=== PATIENT | male | born 1990 | race African-American/Black ===

== ENCOUNTER 2016-12-17 07:46 | Emergency (ER) | payer MEDICAID ==
[~2016-12-17] VITALS: Ht 170.2 cm; Wt 61.2 kg
[2016-12-17 07:43] VITALS: BP 125/75
[2016-12-17 11:03] VITALS: BP 110/62
--- NOTE | 2016-12-17 12:52 | Emergency Room Report ---
History of Present Illness General Chief Complaint: Medication Refill Source: Patient, Family Member, EMS (PAWEL ANGEL D.O.) Present Illness HPI Patient was brought in by paramedics for auditory hallucinations Questionable thoughts of suicidal ideation Patient here denies any active suicidal thoughts however he does have pressured speech And reports history of schizophrenia and major depression Patient has been off his medications for 3 days otherwise denies any vomiting or diarrhea denies any back or flank pain patient has had previous psychiatric hospitalizations (PAWEL ANGEL D.O.) Allergies: Coded Allergies: No Known Allergies (Unverified , 12/17/16) Patient History Past Medical History: see triage record Pertinent Family History: none Reviewed Nursing Documentation: PMH: Agreed, PSxH: Agreed (PAWEL ANGEL D.O.) Nursing Documentation-PMH Past Medical History: No Stated History (PAWEL ANGEL D.O.) Review of Systems All Other Systems: negative except mentioned in HPI (PAWEL ANGEL D.O.) Physical Exam Vital Signs Date Time Temp Pulse Resp B/P Pulse Ox O2 Delivery O2 Flow Rate FiO2 12/17/16 07:36 60 16 125/75 100 Room Air 12/17/16 07:43 98.1 Sp02 EP Interpretation: reviewed, normal General Appearance: well appearing, no apparent distress Head: normocephalic, atraumatic Eyes: bilateral eye EOMI, bilateral eye PERRL ENT: hearing grossly normal, normal pharynx, TMs + canals normal, uvula midline Neck: full range of motion, supple, no meningismus, no bony tend Respiratory: lungs clear, normal breath sounds, no rhonchi, no respiratory distress, no retraction, no accessory muscle use Cardiovascular #1: normal peripheral pulses, regular rate, rhythm, no edema, no gallop, no JVD, no murmur Gastrointestinal: normal bowel sounds, non tender, soft, no mass, no organomegaly, non-distended, no guarding, no hernia, no pulsatile mass, no rebound Genitourinary: no CVA tenderness Musculoskeletal: normal inspection Neurologic: oriented x3, responsive, camera maker III-XII nml as tested, motor strength/ tone normal, sensory intact Psychiatric: other - Patient has pressured speech, auditory hallucinations at this time denies any active suicidal thought Skin: normal color, no rash, warm/dry, palpation normal Lymphatic: normal inspection, no adenopathy (PAWEL ANGEL D.O.) Medical Decision Making Diagnostic Impression: Primary Impression: medically clear Additional Impressions: Drug abuse Chronic renal insufficiency Schizoaffective disorder ER Course Patient initially had orders for medical clearance however initially refused Psychiatry was consult it and feel that the patient is appropriate for further medical clearance and psychiatric evaluation Therefore the patient after prolonged observation agreed to initial blood work family has been contacted spoke to psychiatry and also staff At this time patient pendeing further psychiatric evaluation team Please note that [facility] was contacted patient does not have psychiatric coverage through them Labs from August that were reviewed by [place] show similar creatinine of 2.4 BUN at that time was also 30 The patient has history of chronic renal insufficiency therefore the son the patient further medically cleared Does show evidence of positive amphetamine and drug abuse and continued to have psychiatric evaluation consultation Labs Test 12/17/16 12:47 12/17/16 13:00 White Blood Count 10.1 K/UL (4.8-10.8) Red Blood Count 4.02 M/UL (4.70-6.10) Hemoglobin 12.5 G/DL (14.2-18.0) Hematocrit 38.3 % (42.0-52.0) Mean Corpuscular Volume 95 FL (80-99) Mean Corpuscular Hemoglobin 31.0 PG (27.0-31.0) Mean Corpuscular Hemoglobin Concent 32.6 G/DL (32.0-36.0) Red Cell Distribution Width 13.5 % (11.6-14.8) Platelet Count 334 K/UL (150-450) Mean Platelet Volume 7.3 FL (6.5-10.1) Neutrophils (%) (Auto) 60.9 % (45.0-75.0) Lymphocytes (%) (Auto) 26.2 % (20.0-45.0) Monocytes (%) (Auto) 8.9 % (1.0-10.0) Eosinophils (%) (Auto) 2.4 % (0.0-3.0) Basophils (%) (Auto) 1.7 % (0.0-2.0) Sodium Level 143 mEQ/L (135-145) Potassium Level 4.6 mEQ/L (3.4-4.9) Chloride Level 101 mEQ/L (98-107) Carbon Dioxide Level 25 mEQ/L (20-30) Anion Gap 17 (5-15) Blood Urea Nitrogen 24 mg/dL (7-23) Creatinine 2.4 mg/dL (0.7-1.2) Estimat Glomerular Filtration Rate 39.5 mL/min (>60) Glucose Level 81 mg/dL (74-106) Calcium Level 10.2 mg/dL (8.6-10.2) Total Bilirubin 0.5 mg/dL (0.0-1.2) Aspartate Amino Transf (AST/SGOT) 14 U/L (5-40) Alanine Aminotransferase (ALT/SGPT) 13 U/L (3-41) Alkaline Phosphatase 185 U/L (40-129) Total Protein 8.4 g/dL (6.6-8.7) Albumin 4.7 g/dL (3.5-5.2) Globulin 3.7 g/dL Albumin/Globulin Ratio 1.2 (1.0-2.7) Salicylates Level < 1 mg/dL (10-30) Acetaminophen Level < 10 ug/mL (10-30) Serum Alcohol < 10 mg/dL Urine Opiates Screen Negative (NEGATIVE) Urine Barbiturates Screen Negative (NEGATIVE) Phencyclidine (PCP) Screen Negative (NEGATIVE) Urine Amphetamines Screen Positive (NEGATIVE) Urine Benzodiazepines Screen Positive (NEGATIVE) Urine Cocaine Screen Negative (NEGATIVE) Urine Marijuana (THC) Screen Negative (NEGATIVE) (PAWEL ANGEL.Jace) ER Course Patient stating considering suicide. Plan would be with knife. Zyprexa given. Requesting clonazepam. Ordered. Accepted by [facility]. (Joel Myers M.D.) Last Vital Signs Date Time Temp Pulse Resp B/P Pulse Ox O2 Delivery O2 Flow Rate FiO2 12/17/16 11:03 98.1 65 16 110/62 100 Room Air (PAWEL ANGEL D.O.) Status: improved (Joel Myers M.D.) Disposition: XFER TO PSYCH HOSP/UNIT Condition: Serious - but stable for transfer Referrals: [facility] (PCP) PAWEL ANGEL D.O. Dec 17, 2016 12:52 Joel Myers M.D. Dec 17, 2016 18:41
[2016-12-17 13:19] LABS: BASOPHILS % (AUTO) 1.7 % (0.0-2.0); EOSINOPHILS % (AUTO) 2.4 % (0.0-3.0); LYMPHOCYTES % (AUTO) 26.2 % (20.0-45.0); MEAN CORPUSCULAR HGB CONC 32.6 G/DL (32.0-36.0); MEAN CORPUSCULAR VOLUME 95 FL (80-99); MEAN PLATELET VOLUME 7.3 FL (6.5-10.1); MONOCYTES % (AUTO) 8.9 % (1.0-10.0); NEUTROPHILS % (AUTO) 60.9 % (45.0-75.0); PLATELET COUNT 334 K/UL (150-450); RED BLOOD COUNT 4.02 M/UL (4.70-6.10); RED CELL DISTRIBUTION WIDTH 13.5 % (11.6-14.8); WHITE BLOOD COUNT 10.1 K/UL (4.8-10.8)
[2016-12-17 13:36] LABS: ACETAMINOPHEN < 10 ug/mL (10-30); ALANINE AMINOTRANSFERASE 13 U/L (3-41); ALBUMIN/GLOBULIN RATIO 1.2 (1.0-2.7); ALCOHOL < 10 mg/dL; ANION GAP 17 (5-15); ASPARTATE AMINO TRANSFERASE 14 U/L (5-40); CALCIUM 10.2 mg/dL (8.6-10.2); CARBON DIOXIDE 25 mEQ/L (20-30); CHLORIDE 101 mEQ/L (98-107); CREATININE 2.4 mg/dL (0.7-1.2); GLOMERULAR FILTRATION RATE 39.5 mL/min (>60); HEMOLYSIS 5; POTASSIUM 4.6 mEQ/L (3.4-4.9); SODIUM 143 mEQ/L (135-145); TOTAL PROTEIN 8.4 g/dL (6.6-8.7)
[2016-12-17 14:59] VITALS: BP 105/65
[2016-12-17 19:00] VITALS: BP 113/77
[2016-12-17 19:53] VITALS: BP 100/57
== END 2016-12-17 20:07 ==
LOC: EDBD 07:46 → EMR 08:15
DX: F19.10 Other psychoactive substance abuse, uncomplicated (principal); N18.9 Chronic kidney disease, unspecified; F25.9 Schizoaffective disorder, unspecified
CPT/HCPCS: 36415; 80053; 80300; 80329; 85025